=== PATIENT | male | born 1955 | race Caucasian/White ===

== ENCOUNTER 2016-12-24 14:33 | Emergency (ER) | payer BC ==
[~2016-12-24] VITALS: Ht 177.8 cm; Wt 98.9 kg
[~2016-12-24 14:33] MED LIST: 12 HOUR COLD R120 M1 PO; ACETAMINOPHEN325 M1 PO; ALBUTEROL2.5 MG/0.1 INH; ANDROGEL; ANDROGEL5 GM TRANSDERM; ASPIRIN81 M2 PO; BETASEPT 4% SU120 M1; CALCIUM 500 +1 EAC5 PO; CLARITIN10 M2 PO; CLARITIN10 MG PO; COPPER2 MG PO; FAMOTIDINE20 MG/2 M2 IV PUSH; FERREX 150150 MG PO; FISH OIL 1,0001 EAC5 PO; FISH OIL 1,001000 M2 PO; GALZIN50 MG PO; HYDROCODON-ACE1 EAC7 PO; INDOMETHACIN 2525 MG PO; LASIX 40 MG TAB40 M1 PO; LEVAQUIN 500 M500 M1 PO; LIPITOR10 MG PO; MANGANESE PO; MECLIZINE 25 MG25 M1 PO; MUCINEX TA600 MG/TA1 PO; MULTIVITAMINS PO; NASAL DECONGEST30 ML NASAL; NITROGLYCERIN0.4 MG SL; NORCO 5-325 TA1 EACH PO; ONDANSETRON HCL4 M1 PO; PERCOCET 5-3251 EACH PO; PHENERGAN 25 MG25 M1 PO; POTASSIUM20 PO; POTASSIUM99 M1 PO; SELENIUM100 MCG PO; SENNA; TOPROL XL25 MG PO; UNICOMPLEX M TA1 TA1 PO; VITAMIN B COMP1 EACH PO; VITAMIN D5000 UNIT PO; VITAMIN E400 UNIT PO
[2016-12-24 15:03] LABS: ABSOLUTE NEUTROPHILS 7.9 thou/uL (1.4-8.2); BASOPHILS 0.5 % (0.0-2.0); EOSINOPHILS 0.8 % (0.0-3.0); HEMATOCRIT 48.3 % (42.0-52.0); HEMOGLOBIN 16.8 gm/dL (14.0-18.0); LYMPHOCYTES 11.6 % (24.0-44.0); MCH 30.4 pg (26.0-34.0); MCHC 34.7 g/dL (28.0-37.0); MCV 87.5 fL (80.0-100.0); MONOCYTES 5.8 % (1.0-8.0); POLYS 81.3 % (36.0-66.0); RBC 5.52 mil/uL (4.50-6.00); RDW 14.4 % (10.5-14.5); WBC 9.8 thou/uL (4.0-11.0)
[2016-12-24 15:06] LABS: CREATININE 1.7 mg/dL (0.7-1.3); MANUAL DIFF NO; POTASSIUM 3.8 mmol/L (3.5-5.1)
[2016-12-24 15:10] LABS: ALBUMIN 3.8 g/dL (3.4-5.0); TOTAL PROTEIN 7.4 g/dL (6.4-8.2)
[2016-12-24 15:27] LABS: PLATELET COUNT 82 thou/uL (150-400)
[2016-12-24] MEDS ORDERED: FLOMAX0.4 MG PO (16:32)
[2016-12-24] MEDS ORDERED: TORADOL 10 MG T10 MG PO (16:32)
[2016-12-24] MEDS ORDERED: NORCO 5-325 TA1 EACH PO (16:32)
[2016-12-24] MEDS ORDERED: ZOFRAN ODT4 MG PO (16:51)
[2016-12-24 17:13] LABS: URINE BILIRUBIN NEGATIVE (Negative); URINE BLOOD 3+ (Negative); URINE COLOR YELLOW; URINE GLUCOSE-RANDOM* NEGATIVE (Negative); URINE KETONES NEGATIVE (Negative); URINE LEUKOCYTES-REFLEX NEGATIVE (Negative); URINE PROTEIN (DIPSTICK) NEGATIVE (Negative); URINE SPECIFIC GRAVITY >= 1.030 (1.003-1.035); URINE UROBILINOGEN 0.2 E.U./dl (0.2-1.0)
[2016-12-24 17:20] LABS: CASTS None Seen /LPF (None Seen); CRYSTALS None Seen /LPF (None Seen); SQUAMOUS 0-3 Few /LPF (0-3); URINE RBC 3-10 Few /HPF (0-2)
[2016-12-24 17:21] LABS: URINE WBC-REFLEX None Seen /HPF (0-5)
== END 2016-12-24 17:36 | disposition home or self-care (01) ==
LOC: ER 14:33
PROVIDERS: Emergency Medicine
DX: N28.9 Disorder of kidney and ureter, unspecified (principal); N20.1 Calculus of ureter; I10 Essential (primary) hypertension; Z87.442 Personal history of urinary calculi; Z95.1 Presence of aortocoronary bypass graft; Z86.2 Personal history of diseases of the blood and blood-forming organs and certain disorders involving the immune mechanism